=== PATIENT | male | born 1955 | race Caucasian/White ===

== ENCOUNTER 2022-01-30 11:30 | Emergency (ER) | payer MEDICARE, SELFPAY ==
[2022-01-30 11:41] VITALS: BP 120/65; PULSE 66; RESP 16; TEMP 37.1; O2SAT 99
--- NOTE | 2022-01-30 11:50 | ED.URI ---
HPI - URI/Sore Throat General Chief Complaint: Upper Respiratory Infection Stated Complaint: Congestion and head pressure Time Seen by Provider: 01/30/22 11:45 Source: patient and RN notes reviewed History of Present Illness HPI Narrative: Patient is 66-year-old male who presents the urgent care with complaints of congestion and head pressure. Patient states is been off and on for couple weeks but seems to have gotten worse over the last couple days. Patient states that mainly his nasal drainage and postnasal drainage. Patient also states that he woke up with a cold sore couple days ago and did take 2 500 mg valacyclovir this morning. Patient denies of any use of [id number] medication for his sinusitis. Denies of any ill exposures. Denies of any cough or fever. No other acute complaints. No acute distress noted. Patient aware of the plan of care. Some parts of this dictation were generated by voice recognition software and may contain typographical and/or grammatical inaccuracies. Related Data Home Medications Medication Instructions Recorded Confirmed clopidogrel 75 mg tablet (Plavix) 75 mg PO DAILY 01/30/22 01/30/22 lisinopril 40 mg tablet 40 mg PO DAILY 01/30/22 01/30/22 meloxicam 15 mg tablet 15 mg PO DAILY 01/30/22 01/30/22 metoprolol tartrate 25 mg tablet 25 mg PO BID 01/30/22 01/30/22 rosuvastatin 20 mg tablet 20 mg PO DAILY 01/30/22 01/30/22 valacyclovir 1 gram tablet 1,000 mg PO DAILY PRN Cold Sores 01/30/22 01/30/22 Allergies Allergy/AdvReac Type Severity Reaction Status Date / Time No Known Allergies Allergy Verified 01/30/22 11:49 Review of Systems Review of Systems: CONSTITUTIONAL: Denies fever, chills, or sweats. EYES: Denies visual changes, redness, or discharge. ENT: Reports of nasal congestion, rhinorrhea, postnasal drainage CARDIOVASCULAR: Denies chest pain, palpitations, or edema. RESPIRATORY: Denies cough or dyspnea. GASTROINTESTINAL: Denies abdominal pain, nausea, vomiting, or diarrhea. GENITOURINARY: Denies dysuria or hematuria. SKIN: Denies rash or itching. MUSCULOSKELETAL: Denies back pain, joint pain, or myalgia. NEUROLOGIC: Denies headache, numbness, or weakness. All other systems reviewed are negative, except as documented in HPI. PMFSH Comments At the time of my signature, I reviewed and agree with the nursing past medical, surgical, social, and family history. There is no relevant family history pertinent to the patient complaint. Exam Narrative: GENERAL: This is a well-nourished, well-developed patient, in no apparent distress. HEAD: normocephalic, atraumatic. EYES: PERRL. Sclera clear/white. Vision is grossly intact. EARS: External ears normal, auditory canals clear and without drainage, TMs normal without perforation. Hearing grossly intact. NOSE: External nose normal with no obvious nasal discharge. mild erythema to the bilateral nares with clear to yellow rhinorrhea THROAT: Mucous membranes moist, posterior pharynx clear. Moderate postnasal drainage. 1cm herpes simplex sore noted to the lower lip NECK: Neck supple CARDIOVASCULAR: Regular rate and rhythm without murmurs, gallops, or rubs. RESPIRATORY: Clear to auscultation. Breath sounds equal bilaterally. No wheezes, rales, or rhonchi. SKIN: warm, intact with no suspicious lesions or rash, good texture and turgor. NEURO: awake, alert, and oriented to person, place and time. There were no obvious focal neurologic abnormalities. EXTREMITIES: No clubbing, cyanosis, or edema. Course Course Level of Care: Express Care Visit Vital Signs Vital signs: Vital Signs Temperature 98.8 F 01/30/22 11:41 Pulse Rate 66 01/30/22 11:41 Respiratory Rate 16 01/30/22 11:41 Blood Pressure 120/65 01/30/22 11:41 Pulse Oximetry 99 01/30/22 11:41 Oxygen Delivery Room Air 01/30/22 11:41 Temperature 98.8 F 01/30/22 11:41 Pulse Rate 66 01/30/22 11:41 Respiratory Rate 16 01/30/22 11:41 Blood Pressure 120/65
== END 2022-01-30 12:04 | disposition home or self-care (01) ==
PROVIDERS: Emergency Provider Nurse Practitioner Family
DX: J32.9 Chronic sinusitis, unspecified (principal); I25.10 Atherosclerotic heart disease of native coronary artery without angina pectoris; Z95.5 Presence of coronary angioplasty implant and graft; I10 Essential (primary) hypertension
CPT/HCPCS: 99213; G0463